=== PATIENT | male | born 1980 | race Caucasian/White ===

== ENCOUNTER 2017-09-04 18:42 | Emergency (ER) | payer SELFPAY ==
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
[2017-09-05 01:35] VITALS: BP 128/83; PULSE 76; RESP 16; TEMP 98; O2SAT 98
--- NOTE | 2017-09-05 09:21 | RAD ---
PROCEDURE: Left Knee Radiographs. HISTORY: Pain. COMPARISON: None. FINDINGS: BONES: No acute fracture or destructive bony lesion identified. Small exostosis seen related to the medial femoral condyle posteriorly. JOINTS: Normal. No osteoarthritis. JOINT EFFUSION: Small suprapatellar bursa effusion is encountered. OTHER FINDINGS: None. IMPRESSION: No acute fracture or dislocation. A small suprapatellar bursa effusion is noted.
== END 2017-09-05 01:36 | disposition home or self-care (01) ==
LOC: H.ER 18:42
DX: F10.129 Alcohol abuse with intoxication, unspecified (principal); S80.00XA Contusion of unspecified knee, initial encounter; Y04.0XXA Assault by unarmed brawl or fight, initial encounter; Y92.89 Other specified places as the place of occurrence of the external cause
CPT/HCPCS: 73562; 99284; G0480

== ENCOUNTER 2018-05-27 23:33 | Emergency (ER) | payer MEDICAID ==
[2018-05-28] MEDS ORDERED: Sodium Chloride 0.9% 1,000 ML IV STA (00:22)
[2018-05-28 00:57] LABS: BASO % 0.9 % (0.0-2.0); EOS # 0.2 K/uL (0.0-0.7); EOS % 3.4 % (0.0-4.0); LYMPH # 1.1 K/uL (1.0-4.3); LYMPH % 22.1 % (20.0-40.0); MEAN CELL VOLUME 85.3 fl (80.0-94.0); MEAN CORPUSCULAR HEMOGLOBIN 28.3 pg (27.0-31.0); MEAN CORPUSCULAR HGB CONC 33.1 g/dL (33.0-37.0); MEAN PLATELET VOLUME 7.8 fl (7.2-11.7); MONO # 0.6 K/uL (0.0-0.8); MONO % 11.8 % (0.0-10.0); NEUT % 61.8 % (50.0-75.0); RBC 4.23 Mil/uL (4.40-5.90); RED CELL DISTRIBUTION WIDTH 16.4 % (11.5-14.5); WHITE BLOOD COUNT 4.9 K/uL (4.8-10.8)
[2018-05-28 01:08] LABS: BLOOD UREA NITROGEN 7 mg/dl (9-20); GFR NON-AFRICAN AMERICAN > 60
--- NOTE | 2018-05-28 01:27 | ED PDOC ---
HPI: Seizure Time Seen by Provider: 05/27/18 23:50 Chief Complaint (Nursing): Seizure Chief Complaint (Provider): Seizure History Per: Patient History/Exam Limitations: no limitations Recent Seizure Activity Began: Just Before Arrival (at 2300) Number Of Seizures: One Associated Symptoms: Bit Tongue Additional Complaint(s): 38 year old male with a hx of alcohol abuse presents to the ED via EMS for evaluation of a seizure. Patient states he usually drinks 25oz of beer daily, his last drink at 0700 this morning. Around 2300, he reports that while watching TV with his partner, she witnessed him have a seizure while sitting down where he notes biting his tongue. Currently, he states he is feeling tremulous. PMD: none provided Past Medical History Reviewed: Historical Data, Nursing Documentation, Vital Signs Vital Signs: Last Vital Signs Temp 97 F L 05/28/18 00:23 Pulse 76 05/28/18 00:23 Resp 20 05/28/18 00:23 BP 132/81 05/28/18 00:23 Pulse Ox 100 05/28/18 00:23 - Medical History PMH: Seizures (ETOH related) Denies: Diabetes, Hepatitis, HIV, HTN, Chronic Kidney Disease - Surgical History Surgical History: No Surg Hx - Family History Family History: States: Unknown Family Hx - Social History Alcohol: Other (hx of abuse) - Immunization History Hx Tetanus Toxoid Vaccination: No Hx Influenza Vaccination: No Hx Pneumococcal Vaccination: No - Home Medications Home Medications: Ambulatory Orders Medication Instructions Recorded No Known Home Med 03/18/18 - Allergies Allergies/Adverse Reactions: Allergies Allergy/AdvReac Type Severity Reaction Status Date / Time No Known Allergies Allergy Verified 06/06/17 12:37 Review of Systems ROS Statement: Except As Marked, All Systems Reviewed And Found Negative ENT: Positive for: Other (tongue bite) Neurological: Positive for: Seizures, Other (tremulous) Physical Exam - Reviewed Nursing Documentation Reviewed: Yes Vital Signs Reviewed: Yes - Physical Exam Appears: Positive for: No Acute Distress Head Exam: Positive for: ATRAUMATIC, NORMOCEPHALIC Skin: Positive for: Normal Color. Negative for: Rash Eye Exam: Positive for: Normal appearance ENT: Positive for: Other (abrasions and laceration of tongue) Neck: Positive for: Normal, Painless ROM, Supple Cardiovascular/Chest: Positive for: Regular Rate, Rhythm Respiratory: Positive for: Normal Breath Sounds. Negative for: Respiratory Distress Gastrointestinal/Abdominal: Positive for: Normal Exam, Soft. Negative for: Tenderness Extremity: Positive for: Normal ROM Neurologic/Psych: Positive for: Alert, Oriented (x3), Other (slight tremor of tongue and extremities). Negative for: Motor/Sensory Deficits - Laboratory Results Result Diagrams: 05/28/18 00:35 05/28/18 00:35 - ECG O2 Sat by Pulse Oximetry: 100 (RA) Pulse Ox Interpretation: Normal Medical Decision Making Medical Decision Making: A/P: patient presenting with seizure after alcohol cessation --pt exhibiting early signs of alcohol withdrawal --vital signs currently stable, otherwise well appearing Time: 21 Initial Plan: --Alcohol serum --BMP --Drug screen --CBC with differential --Ativan 2mg IV --Librium 50mg PO --Normal saline IV 550AM --Patient no longer fasiculating --No seizure activity in ED --Will refer patient to [facility] for detox --Vitals improved - Scribe Attestation: Documented by Delia Wood, acting as a scribe for Nestor Barry MD. Provider Scribe Attestation: All medical record entries made by the Scribe were at my direction and personally dictated by me. I have reviewed the chart and agree that the record accurately reflects my personal performance of the history, physical exam, medical decision making, and the department course for this patient. I have also personally directed, reviewed, and agree with the discharge instructions and di sposition. Disposition - Clinical Impression Clinical Impression: Alcohol withdrawal - Patient ED Disposition Is Patient to be Admitted: No - Disposition Referrals: [facility] [Outside] Disposition: Routine/Home Disposition Time: 05:53 Condition: IMPROVED Instructions: Alcohol Abuse and Alcoholism (DC), Alcohol Withdrawal Forms: [employer] (Bruneian) Print Language: HUNGARIAN
[2018-05-28 03:44] LABS: BARBITURATES, UR NEGATIVE (NEGATIVE); BENZODIAZEPINES, UR NEGATIVE (NEGATIVE); OPIATES, UR NEGATIVE (NEGATIVE); PHENCYCLIDINE, UR NEGATIVE (NEGATIVE)
[2018-05-28 06:17] VITALS: BP 124/78; PULSE 81; RESP 16; TEMP 98.1; O2SAT 99
== END 2018-05-28 06:29 | disposition home or self-care (01) ==
LOC: H.ER 23:33
DX: F10.239 Alcohol dependence with withdrawal, unspecified (principal); R56.9 Unspecified convulsions
CPT/HCPCS: 80048; 80320; 80324; 80345; 80346; 80349; 80353; 80358; 80361; 83992; 85025; 96360; 99283; J2060; J7030